=== PATIENT | male | born 1985 | race Caucasian/White ===

== ENCOUNTER → 2017-11-27 14:13 | Outpatient (CLI) | payer OTHER, MEDICAID, SELFPAY ==
[2017-11-27 14:49] LABS: Semen Sperm Prescence Post-Vas Absent (ABSENT)
== END ==
PROVIDERS: Visit Provider Urology
DX: Z30.09 Encounter for other general counseling and advice on contraception (principal)
CPT/HCPCS: 89321

== ENCOUNTER → 2018-05-31 12:35 | Outpatient (CLI) | payer OTHER, MEDICAID, SELFPAY ==
--- NOTE | 2018-05-31 | DI.MRI.S_ITS ---
PROCEDURE: MR KNEE RT WO CON INDICATIONS: PAIN IN RIGHT KNEE TECHNIQUE: Noncontrast sagittal PD fast spin echo and T2 fast spin echo with fat saturation, sagittal 3-D FLASH with fat saturation; coronal T1 spin echo and PD fast spin echo with fat saturation, and axial PD fast spin echo with fat saturation through the knee. COMPARISON: None. FINDINGS: Image quality: Excellent. Menisci: Signal abnormality involving the lateral periphery of body of medial meniscus is seen suspicious for free edge tear versus fraying. No evidence of focal lateral meniscal tear. The meniscal root ligaments appear intact. Cruciate ligaments: The anterior and posterior cruciate ligaments appear intact. Medial structures: The medial collateral ligament appears intact. The posterior oblique ligament, semimembranosus tendon insertions, oblique popliteal ligament, and meniscocapsular junction appear intact. Visualized portions of the pes anserinus tendons appear normal. No abnormal bursal fluid. Lateral structures: The lateral collateral ligament, long and short heads of the biceps femoris tendon appear intact. The popliteus tendon appears normal; the popliteofibular ligament appears intact. The posterosuperior and anteroinferior popliteomeniscal fascicles appear intact. The arcuate and fabellofibular ligaments appear intact, on either side of the lateral inferior geniculate artery. Iliotibial band appears normal. Anterior structures: The quadriceps and patellar tendons appear intact. Patellar alignment is normal. No femoral trochlear dysplasia or ventral trochlear prominence. No edema in the infrapatellar fat pad. Bones and cartilage: There is marrow edema involving anterior weight-bearing portion of tibial plateau with irregularity involving overlying articulating cartilage suspicious pole of the contusion versus osteochondral lesion in this area. Subtle edema and possible small subchondral cysts formation and adjacent weightbearing portion of medial femoral condyle is seen. No discrete fracture line is seen. No other area of abnormal marrow signal. Articulating cartilages and lateral femoral tibial compartment and patellofemoral compartment are intact. Joint space: There is physiologic knee joint fluid. No Love's cyst. Normal appearing synovial plicae are incidentally noted. IMPRESSION: 1. Bony contusion versus osteochondral lesion involving anterior weight-bearing portion of medial tibial plateau and subtle marrow edema involving the adjacent weightbearing portion of medial femoral condyle. No fracture or dislocation. 2. Signal abnormality involving central periphery of the medial meniscal body, suspicious for a complex free edge tear in this area. No evidence of lateral meniscal tear. Cruciate ligaments are intact. Dictated by: Manuel Larsen M.D. on 06/01/2018 at 8:35 Approved by: Manuel Larsen M.D. on 06/01/2018 at 8:58
== END ==
PROVIDERS: Visit Provider Family Medicine Geriatric Medicine
DX: M25.561 Pain in right knee (principal)
CPT/HCPCS: 73721

== ENCOUNTER → 2019-02-25 09:53 | Outpatient (CLI) | payer OTHER, MEDICAID, SELFPAY ==
--- NOTE | 2019-02-25 | DI.MRI.S_ITS ---
PROCEDURE: MR LOWER LEG LT WO/W CON INDICATIONS: LEFT LOWER LEG PAIN TECHNIQUE: Noncontrast coronal T1 spin echo and STIR, sagittal T1 spin echo with fat saturation and STIR, axial T1 spin echo and T2 fast spin echo with fat saturation. After the administration of contrast, axial/sagittal/coronal T1 spin echo with fat saturation through the left lower leg. COMPARISON: [facility], , MRI LOWER EXT. JOINT W/O CONTRAST, 12/02/2003, 12:21. FINDINGS: Image quality: Excellent. Bones: The visualized bone marrow demonstrates normal signal on all sequences. The overlying cortex appears intact. No abnormal intraosseous enhancement. Soft tissues: Surface skin marker is placed over posterior medial aspect of distal lower leg at the level of distal medial head of gastrocnemius muscle. No soft tissue masses are visualized. The scanned muscles demonstrate normal overall bulk and internal signal. Subcutaneous tissues appear normal as well. No abnormal soft tissue enhancement. IMPRESSION: 1. No discrete soft tissue mass or fluid collection is seen. No gross muscle or tendon signal abnormality. 2. No marrow signal abnormality. No evidence of stress fracture. No abnormal intraosseous enhancement. Dictated by: Manuel Larsen M.D. on 02/25/2019 at 14:17 Approved by: Manuel Larsen M.D. on 02/25/2019 at 14:26
== END ==
PROVIDERS: Visit Provider Family Medicine Geriatric Medicine
DX: M79.662 Pain in left lower leg (principal)
CPT/HCPCS: 73720; A9579